=== PATIENT | male | born 1985 | race Two or more races ===

== ENCOUNTER 2017-05-17 14:26 | Emergency (ER) | payer OTHER ==
[2017-05-17 14:37] VITALS: BP 156/80; PULSE 96; TEMP 98.8; BMI 29.1
--- NOTE | 2017-05-17 15:38 | PDOC ---
History of Present Illness - General Chief Complaint: Urinary Problem Stated Complaint: URINE RETENTION Time Seen by Provider: 05/17/17 15:15 History Source: Patient Exam Limitations: No Limitations - History of Present Illness Initial Comments: 05/17/17 15:33 Patient is a 32-year-old male, denies any significant medical history currently on no medication. Patient reports that he hasn't been feeling well for the last 3 days has been in bed with cough and cold-like symptoms and today presents with urinary frequency and it feels like " it is blocked" when I urinate. Denies any fever, no back pain. Patient states he did have sex yesterday morning with his , denies any extramarital relations. Denies any scrotal pain or edema, no lesions, no penile discharge. Past Medical History: Denies. Allergies: No known allergies Medications: None Family History: Non-contributory Social History: Denies smoking, alcohol use, or IVDU Review of Systems GENERAL/CONSTITUTIONAL: No fever or chills. No weakness. No weight change. HEAD, EYES, EARS, NOSE AND THROAT: No change in vision. No ear pain or discharge. No sore throat. CARDIOVASCULAR: No chest pain or shortness of breath. RESPIRATORY: No cough, wheezing, or hemoptysis. GASTROINTESTINAL: No nausea, vomiting, diarrhea or constipation. No rectal bleeding. GENITOURINARY: Dysuria and frequency, no hematuria no penile discharge no scrotal pain lesions or edema. MUSCULOSKELETAL: No joint or muscle swelling or pain. No neck or back pain. SKIN AND BREASTS: No rash or easy bruising. NEUROLOGIC: No headache, vertigo, loss of consciousness, or loss of sensation. ENDOCRINE: No increased thirst. No abnormal weight change. HEMATOLOGIC/LYMPHATIC: No anemia, easy bleeding, or history of blood clots. ALLERGIC/IMMUNOLOGIC: No hives or skin allergy. No latex allergy. Physical Exam: GENERAL: The patient is awake, alert, and fully oriented, in no acute distress. HEAD: Normal with no signs of trauma. EYES: Pupils equal, round and reactive to light, extraocular movements intact, sclera anicteric, conjunctiva clear. ENT: Ears normal, nares patent, oropharynx clear without exudates. Moist mucous membranes. No uvula deviation NECK: Normal range of motion, supple without lymphadenopathy, JVD, or masses. LUNGS: Breath sounds equal, clear to auscultation bilaterally. No wheezes, and no crackles. HEART: Regular rate and rhythm, normal S1 and S2 without murmur, rub or gallop. ABDOMEN: Soft, nontender, normoactive bowel sounds. No guarding, no rebound. No masses. No bruising or abrasions GENITALIA: No penile discharge, edema, no lesions, no scrotal edema or lesions, good cremasteric reflex MUSCULOSKELETAL: Normal range of motion, no edema. No clubbing or cyanosis. No cords, erythema, or tenderness. No CVA Tenderness with fist palpation. NEUROLOGICAL: Cranial nerves II through XII grossly intact. Normal speech, normal gait. SKIN: Warm, Dry, normal turgor, no rashes or lesions noted. Past History - Past Medical History Allergies/Adverse Reactions: Allergies Allergy/AdvReac Type Severity Reaction Status Date / Time No Known Allergies Allergy Verified 05/17/17 14:34 Home Medications: Ambulatory Orders Nitrofurantoin Monohyd/M-Cryst [Macrobid -] 100 mg PO BID #14 capsule 05/17/17 Other medical history: DENIES. - Psycho/Social/Smoking Cessation Hx Anxiety: No Suicidal Ideation: No Smoking History: Current some day smoker Have you smoked in the past 12 months: Yes Number of Cigarettes Smoked Daily: 1 Information on smoking cessation initiated: No Hx Alcohol Use: Yes Drug/Substance Use Hx: No Substance Use Type: Alcohol *Physical Exam - Vital Signs Last Vital Signs Temp Pulse Resp BP Pulse Ox 98.8 F 96 H 18 156/80 99 05/17/17 14:33 05/17/17 14:33 05/17/17 14:33 05/17/17 14:33 05/17/17 14:33 Medical Decision Making - Medical Decision Making 05/17/17 15:48 A/P: Patient here for evaluation of dysuria and frequency. Patient is circumcised. Denies any back pain. No hematuria. We'll send urinalysis and urine culture. Gonorrhea Chlamydia and RPR patient is refusing HIV. Patient states he was in bed 6 for several days and had sex yesterday with his denies any extramarital relations. *DC/Admit/Observation/Transfer Diagnosis at time of Disposition: Dysuria Urinary tract infection Qualifiers: Urinary tract infection type: site unspecified Hematuria presence: without hematuria Qualified Code(s): N39.0 - Urinary tract infection, site not specified - Discharge Dispostion Disposition: HOME Condition at time of disposition: Good Admit: No - Prescriptions Prescriptions: Nitrofurantoin Monohyd/M-Cryst [Macrobid -] 100 mg PO BID #14 capsule - Patient Instructions Printed Discharge Instructions: DI for Urinary Tract Infection (UTI) Additional Instructions: Please call [phone] on May 22 after 11 AM ask for Claire for results of your test. Results can take more than a week . Please refrain from sexual activity for at least 2 weeks If any increased pain, fever, or any other concerns return to ER Please take antibiotics as prescribed
[2017-05-17 15:39] LABS: URINE APPEARANCE CLEAR; URINE BILIRUBIN NEGATIVE (NEGATIVE); URINE BLOOD 2+ (NEGATIVE); URINE COLOR COLORLESS; URINE GLUCOSE (UA) NEGATIVE (NEGATIVE); URINE KETONE NEGATIVE (NEGATIVE); URINE NITRITE NEGATIVE (NEGATIVE); URINE PROTEIN NEGATIVE (NEGATIVE); URINE UROBILINOGEN NEGATIVE mg/dL (0.2-1.0)
[2017-05-17 15:49] LABS: URINE LEUK ESTERASE 3+ (NEGATIVE)
[2017-05-17] MEDS ORDERED: AZITHROMYCIN 1 GM PACKET PO ONE (16:04)
[2017-05-17] MEDS ORDERED: PHENAZOPYRIDINE HCL 100 MG TABLET (FP) PO ONE (16:04)
[2017-05-17] MEDS ORDERED: AZITHROMYCIN 1 GM PACKET ONE (16:07)
[2017-05-17] MEDS ORDERED: PHENAZOPYRIDINE HCL 100 MG TABLET (FP) ONE (16:07)
[2017-05-17] MEDS ORDERED: LIDOCAINE HCL/PF 1% SDV 5ML VIAL ONE (16:09)
[2017-05-17 16:48] LABS: URINE BACTERIA RARE /hpf (NONE SEEN); URINE WBC 5 /hpf (3-5)
== END 2017-05-17 17:00 | disposition home or self-care (01) ==
LOC: JERFT 14:26
DX: N39.0 Urinary tract infection, site not specified (principal); F17.210 Nicotine dependence, cigarettes, uncomplicated; R30.0 Dysuria
CPT/HCPCS: 36415; 81003; 81015; 86593; 87086; 87186; 87491; 87591; 96372; 99281-25

== ENCOUNTER 2021-12-15 11:00 | Emergency (ER) | payer OTHER ==
[2021-12-15 11:17] VITALS: TEMP 98.4; BMI 29.7
[2021-12-15] MEDS ORDERED: ONDANSETRON 4 MG/2 ML VIAL ONE (12:25)
[2021-12-15] MEDS ORDERED: ACETAMINOPHEN INJECTION 100 ML IVPB ONE (12:25)
[2021-12-15] MEDS ORDERED: SODIUM CHLORIDE 0.9% 500 ML INFUS.BAG IV ONE ×2 (12:43→15:53)
[2021-12-15] MEDS ORDERED: FAMOTIDINE 20 MG/50 ML IVPB 20 MG/50 ML MG IVPB ONE ×2 (12:44→12:50)
[2021-12-15] MEDS ORDERED: ONDANSETRON 4 MG/2 ML VIAL IVPUSH ONE (12:51)
[2021-12-15] MEDS ORDERED: ACETAMINOPHEN 1000 MG/100 ML BAG IVPB ONE (12:51)
[2021-12-15 13:24] LABS: BASO % 0.2 % (0-2.0); EOS % 0.3 % (0-4.5); HEMATOCRIT 54.8 % (35.4-49); HEMOGLOBIN 19.2 GM/dL (11.7-16.9); LYMPH % 4.8 % (8-40); MCH 31.7 pg (25.7-33.7); MCHC 35.1 g/dl (32.0-35.9); MEAN CELL VOLUME 90.6 fl (80-96); MEAN PLT VOLUME 8.7 fl (7.5-11.1); MONO % 4.3 % (3.8-10.2); NEUT % 90.4 % (42.8-82.8); PLATELET COUNT 240 10^3/uL (134-434); RBC 6.05 M/mm3 (4.00-5.60); RDW 13.5 % (11.9-15.9); WHITE BLOOD COUNT 11.9 K/mm3 (4.0-10.0)
[2021-12-15 13:26] LABS: PH,URINE 5.5 (5.0-8.0); URINE APPEARANCE CLEAR; URINE BILIRUBIN NEGATIVE (NEGATIVE); URINE COLOR YELLOW; URINE GLUCOSE (UA) NEGATIVE (NEGATIVE); URINE KETONE TRACE (NEGATIVE); URINE LEUK ESTERASE NEGATIVE (NEGATIVE); URINE NITRITE NEGATIVE (NEGATIVE); URINE PROTEIN NEGATIVE (NEGATIVE)
[2021-12-15 13:46] LABS: CALCIUM 9.9 mg/dL (8.5-10.1)
[2021-12-15 13:47] LABS: ALBUMIN 4.5 g/dl (3.4-5.0); BLOOD UREA NITROGEN 16.8 mg/dL (7-18)
[2021-12-15 13:49] LABS: CREATININE 1.2 mg/dL (0.55-1.3)
[2021-12-15 13:51] LABS: BILIRUBIN,TOTAL 2.2 mg/dL (0.2-1); TOT PROT 8.4 g/dl (6.4-8.2)
[2021-12-15] MEDS ORDERED: MECLIZINE HCL 25 MG TABLET (FP) PO ONE (15:53)
[2021-12-15] MEDS ORDERED: MECLIZINE HCL 25 MG TABLET (FP) ONE (15:58)
[2021-12-15 17:49] VITALS: BP 114/75; PULSE 89
== END 2021-12-15 17:49 | disposition home or self-care (01) ==
LOC: JER 11:00
PROC: 3E0333Z Introduction of Anti-inflammatory into Peripheral Vein, Percutaneous Approach (ICD-10-PCS; principal; 2021-12-15)
PROC: 3E033GC Introduction of Other Therapeutic Substance into Peripheral Vein, Percutaneous Approach (ICD-10-PCS; 2021-12-15)
PROC: 3E033GC Introduction of Other Therapeutic Substance into Peripheral Vein, Percutaneous Approach (ICD-10-PCS; 2021-12-15)
DX: R42 Dizziness and giddiness (principal); G93.0 Cerebral cysts; R19.7 Diarrhea, unspecified; R51.9 Headache, unspecified; R11.2 Nausea with vomiting, unspecified
CPT/HCPCS: 36415; 70450-TC; 70551-TC; 71046-TC-FY; 80053; 81003; 83690; 84484; 85025; 93005; 93010; 96374; 96375; 99285-25